=== PATIENT | female | born 2000 | race Asian ===

== ENCOUNTER 2021-07-12 17:03 | Inpatient (IN) | payer BC, SELFPAY ==
--- NOTE | ~2021-07-12 | CT_ITS ---
EXAMINATION: CT ANGIOGRAM OF THE CHEST WITH AND WITHOUT CONTRAST (CT PULMONARY ANGIOGRAM FOR PE) CLINICAL INFORMATION: Reason for Exam pleuritic chest pain COMPARISON: None TECHNIQUE: Prior to contrast administration, noncontrast localization images were obtained. Subsequently, multidetector volumetric imaging was performed from the thoracic inlet to below the diaphragms following the administration of 65 mL Omnipaque 350 intravenous contrast. No contrast reaction reported Sagittal, coronal, and MIP oblique sagittal reformatted images were obtained on the CT workstation, uploaded to PACS, and reviewed. This CT examination was performed using dose optimization techniques as appropriate, variously including the following: *Automated exposure control *Adjustment of mA and/or kV according to patient size (this includes techniques or standardized protocols for targeted exams where dose is matched to indication/reason for exam; i.e. extremities or head) *Use of iterative reconstruction technique Total exam dose-length product 168 mGy-cm FINDINGS: QUALITY OF STUDY/CONTRAST BOLUS: Satisfactory. PULMONARY ARTERIES: No central or segmental pulmonary emboli. THORACIC AORTA: No aneurysm or dissection. LUNG: Detailed parenchymal evaluation in some regions is limited due to respiratory motion artifact. No regions of consolidation bilaterally. Mild emphysema noted. PLEURA: No pleural effusion or pneumothorax. MEDIASTINUM: Visualized thyroid gland appears grossly unremarkable. There are subcentimeter mediastinal lymph nodes within the range of normal variation. Cardiac size is within normal limits; no pericardial effusion. No evidence of septal bowing or right heart strain. CHEST WALL/AXILLA: No axillary or internal mammary lymphadenopathy. OSSEOUS STRUCTURES: No acute or suspicious osseous abnormality. UPPER ABDOMEN: Unremarkable. No reflux of contrast into the hepatic veins to suggest elevated right heart pressures. CT/CT angio chest PE protocol IMPRESSION: No pulmonary embolus identified. VTE: negative
--- NOTE | 2021-07-12 18:10 | ECG_ITS ---
Test Reason : chest pain Blood Pressure : / mmHG Vent. Rate : 075 BPM Atrial Rate : 075 BPM P-R Int : 162 ms QRS Dur : 070 ms QT Int : 350 ms P-R-T Axes : 065 084 046 degrees QTc Int : 390 ms Normal sinus rhythm T wave abnormality, consider anterior ischemia Abnormal ECG No previous ECGs available Referred By: Generic ED Physician Electronically Signed By:ANAI HEREDIA MD
[2021-07-12 19:22] VITALS: BP 136/64; PULSE 83; RESP 14; TEMP 36.9; O2SAT 93; BMI 19.2
--- NOTE | 2021-07-12 23:24 | ED_ITS ---
HPI - Chest Pain General Chief Complaint: Chest Pain <SONI Vivar Last Filed: 07/13/21 04:58> Stated Complaint: chest pains <SONI Vivar Last Filed: 07/13/21 04:58> Time Seen by Provider: 07/12/21 23:09 <SONI Vivar Last Filed: 07/13/21 04:58> Source: patient <SONI Vivar Last Filed: 07/13/21 04:58> Mode of arrival: ambulatory <SONI Vivar Last Filed: 07/13/21 04:58> Limitations: no limitations <SONI Vivar Last Filed: 07/13/21 04:58> History of Present Illness HPI narrative: This is a 20-year-old female with no significant medical history presenting to the emergency department with complaints of chest pain X2 days. Patient tells me that the chest pain is pleuritic in nature worse with deep inspiration better with expiration, she reports associated shortness of breath with this chest pain. She tells me that this has never happened before.She tells me she has no known personal cardiac history. No significant family cardiac history. Personal history of congenital heart deffects. Patient tells me she is currently on control. Denies sedentary lifestyle. No recent sick contacts. She denies nausea, vomiting, headache, dizziness, vision changes, abdominal pain, changes in urination in bowel habits. Denies drugs and smoking. <SONI Vivar Last Filed: 07/13/21 04:58> Related Data Home Medications: Home Medications Medication Instructions Recorded Confirmed norethindrone 1 mg-ethinyl 1 tab PO DAILY 07/13/21 07/13/21 estradiol 35 mcg tablet (Alyacen) Previous Rx's Medication Instructions Recorded acetaminophen 325 mg tablet 650 mg PO Q6H PRN #60 tab 07/13/21 aspirin 81 mg chewable tablet 81 mg PO DAILY #30 tab 07/13/21 heparin (porcine) 25,000 unit/250 25,000 unit (250 mL) CONTINUOUS IV 07/13/21 mL in 0.45 % sodium chloride IV INFUSION DAILY #6000 ml soln heparin (porcine) 5,000 unit/mL 1,900 unit (0.38 mL) IVPUSH 07/13/21 injection solution PROTOCOL BOLUS PRN #30 ml heparin (porcine) 5,000 unit/mL 3,800 unit (0.76 mL) IVPUSH 07/13/21 injection solution PROTOCOL BOLUS PRN #30 ml <SONI Vivar Last Filed: 07/13/21 04:58> Allergies/Adverse Reactions: Allergies Allergy/AdvReac Type Severity Reaction Status Date / Time No Known Allergies Allergy Verified 07/13/21 05:27 <SONI Vivar Last Filed: 07/13/21 04:58> Review of Systems Review of Systems: Constitutional : No Weight loss, No Fever, No Chills, No Fatigue, No Malaise ENT/Mouth : No sore throat, No Rhinorrhea Eyes: No Eye Pain, No Swelling, No Redness Cardiovascular : + Chest Pain, + SOB, No Dyspnea on Exertion, No Orthopnea, No Edema, No Palpitations Respiratory : No Cough, No Sputum, No Wheezing Gastrointestinal : No Nausea, No Vomiting, No Diarrhea, No Constipation, No abdominal Pain, No Hematochezia, No Melena Genitourinary : No Dysuria, No Urinary Frequency, No Hematuria, Musculoskeletal : No joint pain, No Myalgias, No Joint Swelling Skin : No Skin Lesions, No rash Neuro : No Weakness, No Numbness, No Dizziness, No Headache Psych : No Anxiety/Panic, No Depression All other systems reviewed and are negative <SONI Vivar Last Filed: 07/13/21 04:58> Yes all other systems are reviewed and are negative <SONI Vivar Last Filed: 07/13/21 04:58> PMF Past Medical History Attestation statement: The following information was validated with the patient. <SONI Vivar Last Filed: 07/13/21 04:58> Source: old records reviewed and nursing notes reviewed <SONI Vivar Last Filed: 07/13/21 04:58> Social History Social History: Social History Alcohol intake: current Alcohol intake frequency: a few times a month Alcohol type: hard liquor Patient Tobacco Use Status: Never used Tobacco service: No Current occupational status: student <SONI Vivar - Last Filed: 07/13/21 04:58> Physical Exam Vital Signs: Vital Signs: Last Vital Signs Temp 97.6 F 07/13/21 16:13 Pulse 101 H 07/13/21 19:29 Resp 24 H 07/13/21 19:29 BP 106/68 07/13/21 19:29 Pulse Ox 98 07/13/21 19:29 BMI result Body Mass Index 19.2 Vital signs stable <SONI Vivar - Last Filed: 07/13/21 04:58> Appearance: Alert.? Oriented X3.? No acute distress.? Head: Normocephalic, atraumatic, no step-offs or deformities Eyes: Pupils equal, round and reactive to light.? ENT: Pharynx normal.? Neck: Normal inspection.? Neck supple.? CVS: Normal heart rate and rhythm.? Pulses normal.? was not able to appreciate any murmurs. Respiratory: No respiratory distress.? Breath sounds normal.? Abdomen: Soft and nontender.? Skin: Skin warm and dry.? Normal skin color.? Normal skin turgor.? Extremities: No lower extremity edema.? No calf ttp , negative Mariza bilaterally. 5/5 strength to bilateral upper and lower extremities Neuro: Oriented X 3.? No motor deficit.? No sensory deficit. CN 2-12 intact <SONI Vivar - Last Filed: 07/13/21 04:58> Course Reevaluation(s) Reevaluation #1: CBC appears to be within normal limits. chemistry with no acute electrolyte abnormalities. BNP 85. Troponin 42039.3. Will do a CTA to rule out PE. Will also reach out to Cardiology. Will give asa 325 at this time. Discussed this case w/ <SONI Vivar - Last Filed: 07/13/21 04:58> Time: 00:51 <SONI Vivar - Last Filed: 07/13/21 04:58> Reevaluation #2: Repeat troponin 05497.1. CTA negative for PE. Patient continues to complain of pleuritic chest pain. [place] texted from cardiology for guidance. This is likely myocarditis. <SONI Vivar - Last Filed: 07/13/21 04:58> Time: 02:40 <SONI Vivar - Last Filed: 07/13/21 04:58> Reevaluation #3: Hospitalist recommends transfer to [facility] due to no inhouse overnight coverage. <SONI Vivar - Last Filed: 07/13/21 04:58> Time: 02:48 <SONI Vivar - Last Filed: 07/13/21 04:58> Additional Reevaluation(s): 0251 [facility] is close to transfers at this time, only open for STEMI will try [place] [facility]. [address] [facility] ED ED-ED 0259 New t wave inversions to V4, and right axis deviation. 0348 Cardiology feels comfortable with this patient staying in-house receiving heparin and colchicine which I will order for patient. Hospitalist still does not feel comfortable keeping this patient. He will reach out to cardiology. HH waiting for us to determine if patient will be transfered or not. 0445 called [facility] to cancel transfer. At this time patient will be admitted to the hospitalist team. Put in an order for heparin. accepting <SONI Vivar - Last Filed: 07/13/21 04:58> MDM - Chest Pain MDM Narrative Medical decision making narrative: 6135 This is a 20-year-old female past medical history congenital heart disease presenting to the emergency department with complaints of pleuritic chest pain and associated shortness of breath x2 days progressively worsening. Patient is on control pills. Denies long travel. Denies previous episodes like this. Denies recent illness. Denies fevers and chills. Denies back pain. On combination OCP Alyacen Upon physical examination patient is noted to have a rapid regular rhythm likely sinus tachycardia. Was not able to appreciate murmurs upon my exam. Lungs clear. Abdomen soft nontender nondistended. Negative Mariza bilaterally. Neuro exam is nonfocal. Patient alert and oriented x4 with stable vital signs Plan at this time is labs, imaging, urine, EKG, cardiac monitoring, D-dimer, troponin. Will rule out ACS, PE. Other differentials include pericarditis, myocarditis. Unlikely that this is aortic dissection history and physical examination not consistent with it. <SONI Vivar - Last Filed: 07/13/21 04:58> Medical Records Data Attestation: I reviewed the patient's medical records. <SONI Vivar - Last Filed: 07/13/21 04:58> Lab Data Attestation: I reviewed the patient's lab results. <SONI Vivar - Last Filed: 07/13/21 04:58> Result diagrams: : 07/12/21 23:44 07/12/21 23:44 <SONI Vivar - Last Filed: 07/13/21 04:58> Labs: Lab Results 07/12/21 07/12/21 07/12/21 Range/Units 23:44 23:44 23:44 WBC 9.5 (4.8-10.8) X10*3/uL RBC 4.14 L (4.20-5.50) X10*6/uL Hgb 12.0 (12.0-16.0) g/dl Hct 36.7 L (37.0-47.0) % MCV 88.6 (80.0-98.0) fL MCH 29.0 (27.0-33.0) pg MCHC 32.7 (31.0-35.0) g/dl RDW 13.2 (11.0-16.0) % Plt Count 322 (160-400) X10*3/uL MPV 9.1 L (9.4-12.3) fL Immature Gran % (Auto) 0.2 (0.0-0.4) % Neut % (Auto) 61.7 (45-73) % Lymph % (Auto) 28.1 (20-40) % Sargent % (Auto) 6.9 (2-11) % Eos % (Auto) 2.8 (0-4) % Baso % (Auto) 0.3 (0-2) % Lymph # (Auto) 2.7 (1.2-4.9) X10*3/uL Sargent # (Auto) 0.7 (0.1-1.2) X10*3/uL Eos # (Auto) 0.3 (0.0-0.4) X10*3/uL Baso # (Auto) 0.0 (0.0-0.2) X10*3/uL Abs Immat Gran (auto) 0.02 (0.00-0.03) X10*3/uL Absolute Neuts (auto) 5.9 (2.0-8.3) x10*3/uL Absolute Nucleated RBC 0.000 (0.0-0.012) X10*3/uL Nucleated RBC % (auto) 0.0 (0.0-0.2) /100WBC ESR (0-20) MM/HR PT (9.9-13.0) SEC INR (0.9-1.1) APTT (24.1-38.0) SEC D-Dimer High Sensitivty NG/ML Sodium 137 (135-145) mmol/L Potassium 4.5 (3.3-5.1) mmol/L Chloride 106 (96-108) mmol/L Carbon Dioxide 24 (22-29) mmol/L Anion Gap 12 (12-20) BUN 9 (9-16) mg/dL Creatinine 0.78 (0.5-1.4) mg/dL Estim Creat Clear Calc 85.8 Estimated GFR > 60 Random Glucose 99 (60-115) mg/dL Calcium 9.4 (8.4-10.2) mg/dL Magnesium 2.2 (1.6-2.6) mg/dL Total Bilirubin 0.3 (0.0-1.0) mg/dL AST 67 H (5-31) U/L ALT 13 (0-31) U/L Alkaline Phosphatase 51 (39-117) U/L Troponin I High Sens (<3.5-17.0) ng/L C-Reactive Protein 8.31 H (< or = 0.50) mg/dL B-Natriuretic Peptide (<100) pg/mL Total Protein 8.0 (6.5-8.0) g/dL Albumin 4.0 (3.5-5.0) g/dL Lipase 28 (8-78) U/L Urine Color Urine Appearance Urine pH (5.0-8.0) Ur Specific [place] (1.005-1.025) Urine Protein (NEG-TRACE) MG/DL Urine Glucose (UA) (NEG) MG/DL Urine Ketones (NEG) MG/DL Urine Blood (NEG) Urine Nitrite (NEG) Ur Leukocyte Esterase (NEG) Urine Test (NEGATIVE) Urine Opiates Screen (Not Detect) Urine Fentanyl Screen (Not Detect) Ur Barbiturates Screen (Not Detect) Ur Phencyclidine Scrn (Not Detect) Ur Amphetamines Screen (Not Detect) U Benzodiazepines Scrn (Not Detect) Urine Cocaine Screen (Not Detect) U Marijuana (THC) Screen (Not Detect) COVID-19 (PAPA) Negative (Negative) COVID-19 Clin Com See Note 07/12/21 07/12/21 07/13/21 Range/Units 23:44 23:44 00:20 WBC (4.8-10.8) X10*3/uL RBC (4.20-5.50) X10*6/uL Hgb (12.0-16.0) g/dl Hct (37.0-47.0) % MCV (80.0-98.0) fL MCH (27.0-33.0) pg MCHC (31.0-35.0) g/dl RDW (11.0-16.0) % Plt Count (160-400) X10*3/uL MPV (9.4-12.3) fL Immature Gran % (Auto) (0.0-0.4) % Neut % (Auto) (45-73) % Lymph % (Auto) (20-40) % Sargent % (Auto) (2-11) % Eos % (Auto) (0-4) % Baso % (Auto) (0-2) % Lymph # (Auto) (1.2-4.9) X10*3/uL Sargent # (Auto) (0.1-1.2) X10*3/uL Eos # (Auto) (0.0-0.4) X10*3/uL Baso # (Auto) (0.0-0.2) X10*3/uL Abs Immat Gran (auto) (0.00-0.03) X10*3/uL Absolute Neuts (auto) (2.0-8.3) x10*3/uL Absolute Nucleated RBC (0.0-0.012) X10*3/uL Nucleated RBC % (auto) (0.0-0.2) /100WBC ESR 44 H (0-20) MM/HR PT (9.9-13.0) SEC INR (0.9-1.1) APTT (24.1-38.0) SEC D-Dimer High Sensitivty NG/ML Sodium (135-145) mmol/L Potassium (3.3-5.1) mmol/L Chloride (96-108) mmol/L Carbon Dioxide (22-29) mmol/L Anion Gap (12-20) BUN (9-16) mg/dL Creatinine (0.5-1.4) mg/dL Estim Creat Clear Calc Estimated GFR Random Glucose (60-115) mg/dL Calcium (8.4-10.2) mg/dL Magnesium (1.6-2.6) mg/dL Total Bilirubin (0.0-1.0) mg/dL AST (5-31) U/L ALT (0-31) U/L Alkaline Phosphatase (39-117) U/L Troponin I High Sens 03550.3 H* (<3.5-17.0) ng/L C-Reactive Protein (< or = 0.50) mg/dL B-Natriuretic Peptide 85 (<100) pg/mL Total Protein (6.5-8.0) g/dL Albumin (3.5-5.0) g/dL Lipase (8-78) U/L Urine Color DK YELLOW Urine Appearance CLEAR Urine pH 6.5 (5.0-8.0) Ur Specific [place] >= 1.030 H (1.005-1.025) Urine Protein TRACE (NEG-TRACE) MG/DL Urine Glucose (UA) NEG (NEG) MG/DL Urine Ketones NEG (NEG) MG/DL Urine Blood NEG (NEG) Urine Nitrite NEG (NEG) Ur Leukocyte Esterase NEG (NEG) Urine Test (NEGATIVE) Urine Opiates Screen (Not Detect) Urine Fentanyl Screen (Not Detect) Ur Barbiturates Screen (Not Detect) Ur Phencyclidine Scrn (Not Detect) Ur Amphetamines Screen (Not Detect) U Benzodiazepines Scrn (Not Detect) Urine Cocaine Screen (Not Detect) U Marijuana (THC) Screen (Not Detect) COVID-19 (PAPA) (Negative) COVID-19 Clin Com 07/13/21 07/13/21 07/13/21 Range/Units 00:20 00:20 00:47 WBC (4.8-10.8) X10*3/uL RBC (4.20-5.50) X10*6/uL Hgb (12.0-16.0) g/dl Hct (37.0-47.0) % MCV (80.0-98.0) fL MCH (27.0-33.0) pg MCHC (31.0-35.0) g/dl RDW (11.0-16.0) % Plt Count (160-400) X10*3/uL MPV (9.4-12.3) fL Immature Gran % (Auto) (0.0-0.4) % Neut % (Auto) (45-73) % Lymph % (Auto) (20-40) % Sargent % (Auto) (2-11) % Eos % (Auto) (0-4) % Baso % (Auto) (0-2) % Lymph # (Auto) (1.2-4.9) X10*3/uL Sargent # (Auto) (0.1-1.2) X10*3/uL Eos # (Auto) (0.0-0.4) X10*3/uL Baso # (Auto) (0.0-0.2) X10*3/uL Abs Immat Gran (auto) (0.00-0.03) X10*3/uL Absolute Neuts (auto) (2.0-8.3) x10*3/uL Absolute Nucleated RBC (0.0-0.012) X10*3/uL Nucleated RBC % (auto) (0.0-0.2) /100WBC ESR (0-20) MM/HR PT 12.8 (9.9-13.0) SEC INR 1.1 (0.9-1.1) APTT 31.2 (24.1-38.0) SEC D-Dimer High Sensitivty 154 NG/ML Sodium (135-145) mmol/L Potassium (3.3-5.1) mmol/L Chloride (96-108) mmol/L Carbon Dioxide (22-29) mmol/L Anion Gap (12-20) BUN (9-16) mg/dL Creatinine (0.5-1.4) mg/dL Estim Creat Clear Calc Estimated GFR Random Glucose (60-115) mg/dL Calcium (8.4-10.2) mg/dL Magnesium (1.6-2.6) mg/dL Total Bilirubin (0.0-1.0) mg/dL AST (5-31) U/L ALT (0-31) U/L Alkaline Phosphatase (39-117) U/L Troponin I High Sens (<3.5-17.0) ng/L C-Reactive Protein (< or = 0.50) mg/dL B-Natriuretic Peptide (<100) pg/mL Total Protein (6.5-8.0) g/dL Albumin (3.5-5.0) g/dL Lipase (8-78) U/L Urine Color Urine Appearance Urine pH (5.0-8.0) Ur Specific [place] (1.005-1.025) Urine Protein (NEG-TRACE) MG/DL Urine Glucose (UA) (NEG) MG/DL Urine Ketones (NEG) MG/DL Urine Blood (NEG) Urine Nitrite (NEG) Ur Leukocyte Esterase (NEG) Urine Test NEGATIVE (NEGATIVE) Urine Opiates Screen POSITIVE H (Not Detect) Urine Fentanyl Screen Not Detected (Not Detect) Ur Barbiturates Screen Not Detected (Not Detect) Ur Phencyclidine Scrn Not Detected (Not Detect) Ur Amphetamines Screen Not Detected (Not Detect) U Benzodiazepines Scrn Not Detected (Not Detect) Urine Cocaine Screen Not Detected (Not Detect) U Marijuana (THC) Screen Not Detected (Not Detect) COVID-19 (PAPA) (Negative) COVID-19 Clin Com 07/13/21 07/13/21 Range/Units 00:47 03:40 WBC (4.8-10.8) X10*3/uL RBC (4.20-5.50) X10*6/uL Hgb (12.0-16.0) g/dl Hct (37.0-47.0) % MCV (80.0-98.0) fL MCH (27.0-33.0) pg MCHC (31.0-35.0) g/dl RDW (11.0-16.0) % Plt Count (160-400) X10*3/uL MPV (9.4-12.3) fL Immature Gran % (Auto) (0.0-0.4) % Neut % (Auto) (45-73) % Lymph % (Auto) (20-40) % Sargent % (Auto) (2-11) % Eos % (Auto) (0-4) % Baso % (Auto) (0-2) % Lymph # (Auto) (1.2-4.9) X10*3/uL Sargent # (Auto) (0.1-1.2) X10*3/uL Eos # (Auto) (0.0-0.4) X10*3/uL Baso # (Auto) (0.0-0.2) X10*3/uL Abs Immat Gran (auto) (0.00-0.03) X10*3/uL Absolute Neuts (auto) (2.0-8.3) x10*3/uL Absolute Nucleated RBC (0.0-0.012) X10*3/uL Nucleated RBC % (auto) (0.0-0.2) /100WBC ESR (0-20) MM/HR PT (9.9-13.0) SEC INR (0.9-1.1) APTT (24.1-38.0) SEC D-Dimer High Sensitivty NG/ML Sodium (135-145) mmol/L Potassium (3.3-5.1) mmol/L Chloride (96-108) mmol/L Carbon Dioxide (22-29) mmol/L Anion Gap (12-20) BUN (9-16) mg/dL Creatinine (0.5-1.4) mg/dL Estim Creat Clear Calc Estimated GFR Random Glucose (60-115) mg/dL Calcium (8.4-10.2) mg/dL Magnesium (1.6-2.6) mg/dL Total Bilirubin (0.0-1.0) mg/dL AST (5-31) U/L ALT (0-31) U/L Alkaline Phosphatase (39-117) U/L Troponin I High Sens 72881.1 H* 85180.7 H* (<3.5-17.0) ng/L C-Reactive Protein (< or = 0.50) mg/dL B-Natriuretic Peptide (<100) pg/mL Total Protein (6.5-8.0) g/dL Albumin (3.5-5.0) g/dL Lipase (8-78) U/L Urine Color Urine Appearance Urine pH (5.0-8.0) Ur Specific [place] (1.005-1.025) Urine Protein (NEG-TRACE) MG/DL Urine Glucose (UA) (NEG) MG/DL Urine Ketones (NEG) MG/DL Urine Blood (NEG) Urine Nitrite (NEG) Ur Leukocyte Esterase (NEG) Urine Test (NEGATIVE) Urine Opiates Screen (Not Detect) Urine Fentanyl Screen (Not Detect) Ur Barbiturates Screen (Not Detect) Ur Phencyclidine Scrn (Not Detect) Ur Amphetamines Screen (Not Detect) U Benzodiazepines Scrn (Not Detect) Urine Cocaine Screen (Not Detect) U Marijuana (THC) Screen (Not Detect) COVID-19 (PAPA) (Negative) COVID-19 Clin Com <SONI Vivar - Last Filed: 07/13/21 04:58> Critical Care Time Critical Care Time Critical Care Time: Yes <SONI Vivar - Last Filed: 07/13/21 04:58> Total Critical Care Time: 120 <SONI Vivar - Last Filed: 07/13/21 04:58> Attestation: I attest to this time spent taking care of the patient, obtaining history, physical, reviewing labs, imaging, speaking to my attending, speaking to specialist. <SONI Vivar - Last Filed: 07/13/21 04:58> Discharge Plan Discharge Clinical Impression: Chest pain, Shortness of breath, Myocarditis <SONI Vivar - Last Filed: 07/13/21 04:58> Patient Disposition: [facility] <SONI Vivar - Last Filed: 07/13/21 04:58> Transfer Details: TO [facility] <SONI Vivar - Last Filed: 07/13/21 04:58> Interventions: Acute Care Transfer Worksheet (ED) Last Done: 07/13/21 19:42 <SONI Vivar - Last Filed: 07/13/21 04:58> Discharge Date/Time: 07/13/21 19:42 <SONI Vivar - Last Filed: 07/13/21 04:58>
[2021-07-12 23:44] VITALS: BP 105/67; PULSE 68; RESP 16; O2SAT 100
[2021-07-12 23:53] LABS: MANUAL DIFF FLAG NO
[2021-07-12 23:54] LABS: Basophils Percent Auto 0.3 % (0-2); Eosinophils Absolute Auto 0.3 X10*3/uL (0.0-0.4); Eosinophils Percent Auto 2.8 % (0-4); Hematocrit 36.7 % (37.0-47.0); Imm Gran Abs Auto 0.02 X10*3/uL (0.00-0.03); Imm Gran Pct Auto 0.2 % (0.0-0.4); Lymphocytes Absolute Auto 2.7 X10*3/uL (1.2-4.9); Lymphocytes Percent Auto 28.1 % (20-40); Mean Corpuscular HGB Conc 32.7 g/dl (31.0-35.0); Mean Corpuscular Volume 88.6 fL (80.0-98.0); Mean Platelet Volume 9.1 fL (9.4-12.3); Monocytes Absolute Auto 0.7 X10*3/uL (0.1-1.2); Monocytes Percent Auto 6.9 % (2-11); Neutrophils Absolute Auto 5.9 x10*3/uL (2.0-8.3); Neutrophils Percent Auto 61.7 % (45-73); Platelet Count 322 X10*3/uL (160-400); Red Blood Count 4.14 X10*6/uL (4.20-5.50); Red Cell Distribution Width 13.2 % (11.0-16.0); White Blood Count 9.5 X10*3/uL (4.8-10.8)
[2021-07-13] VITALS (8 sets, daily range): BP systolic 90–109; BP diastolic 55–69; PULSE 61–101; RESP 17–24; TEMP 36.4–37.5; O2SAT 98–100
--- NOTE | 2021-07-13 | ECG_ITS ---
Test Reason : rhythm check Blood Pressure : / mmHG Vent. Rate : 073 BPM Atrial Rate : 073 BPM P-R Int : 170 ms QRS Dur : 074 ms QT Int : 416 ms P-R-T Axes : 062 086 264 degrees QTc Int : 458 ms Normal sinus rhythm T wave abnormality, consider inferior ischemia T wave abnormality, consider anterolateral ischemia Abnormal ECG When compared with ECG of 13-JUL-2021 03:00, T wave inversion now evident in Inferior leads Inverted T waves have replaced nonspecific T wave abnormality in Lateral leads Referred By: Earl Palmer Electronically Signed By:ANAI HEREDIA MD
[2021-07-13 00:08] LABS: Alanine Aminotransferase 13 U/L (0-31); Alkaline Phosphatase 51 U/L (39-117); Anion Gap 12 (12-20); Aspartate Amino Transferase 67 U/L (5-31); Bilirubin Total 0.3 mg/dL (0.0-1.0); Blood Urea Nitrogen 9 mg/dL (9-16); Calcium 9.4 mg/dL (8.4-10.2); Carbon Dioxide 24 mmol/L (22-29); Chloride 106 mmol/L (96-108); Creatinine Clr Calc Pharmacy 85.8; Estimated Glomerular Filt Rate > 60; Glucose Random 99 mg/dL (60-115); Lipase 28 U/L (8-78); Magnesium 2.2 mg/dL (1.6-2.6); Potassium 4.5 mmol/L (3.3-5.1); Sodium 137 mmol/L (135-145)
[2021-07-13 00:12] LABS: COVID-19 Test Negative (Negative)
[2021-07-13 00:15] LABS: B Type Natriuretic Peptide 85 pg/mL (<100)
[2021-07-13 00:32] LABS: Appearance Urine CLEAR; Color Urine DK YELLOW; Glucose Urine UA NEG (NEG); Leukocyte Esterase Urine NEG (NEG); Nitrite Urine NEG (NEG); PH 6.5 (5.0-8.0); Specific Gravity - Urine >= 1.030 (1.005-1.025); Urine Blood NEG (NEG); Urine Ketones NEG (NEG); Urine Protein TRACE MG/DL (NEG-TRACE)
[2021-07-13 00:33] LABS: UPreg QC Valid YES; Urine Pregnancy NEGATIVE (NEGATIVE)
[2021-07-13] MEDS: Aspirin 325 MG TABLET PO (00:51)
[2021-07-13 01:01] LABS: D Dimer High Sensitivity 154 NG/ML
[2021-07-13] MEDS: iohexoL 350 MG/ML 100 ML INFUS..BTL 65 ML IV (01:28)
--- NOTE | 2021-07-13 02:54 | PC.NURSE ---
call out to [facility] transfer line @[phone] regarding transfer [facility] declined patient transfer due to not accepting non acute transfers at the moment.
--- NOTE | 2021-07-13 02:56 | PC.NURSE ---
Addendum entered by Rhianna Lemus 07/13/21 02:58: call out to [facility] patient placement line @[phone]. Bin Neil patient demographics Faxed Face sheet @[phone] Original Note: call out to [facility] patient placement line :?[phone]:[phone]
[2021-07-13 02:59] LABS: C Reactive Protein 8.31 mg/dL (< or = 0.50)
--- NOTE | 2021-07-13 03:01 | ECG_ITS ---
Test Reason : CHEST PAIN Blood Pressure : / mmHG Vent. Rate : 074 BPM Atrial Rate : 074 BPM P-R Int : 160 ms QRS Dur : 070 ms QT Int : 402 ms P-R-T Axes : 046 091 072 degrees QTc Int : 446 ms Normal sinus rhythm Rightward axis T wave abnormality, consider anterior ischemia Abnormal ECG When compared with ECG of 12-JUL-2021 18:10, Nonspecific T wave abnormality now evident in Lateral leads QT has lengthened Referred By: Michelle Rosenbaum Electronically Signed By:ANAI HEREDIA MD
[2021-07-13 03:23] LABS: Erythrocyte Sedimentation Rate 44 MM/HR (0-20)
[2021-07-13 05:09] LABS: INTERNATIONAL NORM RATIO 1.1 (0.9-1.1); Prothrombin Time 12.8 SEC (9.9-13.0)
[2021-07-13 05:11] LABS: Partial Thromboplastin Time 31.2 SEC (24.1-38.0)
[2021-07-13] MEDS: Heparin Sodium,Porcine 5,000 UNIT/ML VIAL 2900 UNIT IVPUSH (05:28)
[2021-07-13] MEDS: Heparin Sodium,Porcine/1/2NS 25,000 UNIT/250 ML IV.SOLN 5.72 UNIT IVCONT (05:33)
--- NOTE | 2021-07-13 05:33 | P.HPHOSP_ITS ---
History of Present Illness Date of Service: 07/13/21 Chief Complaint: chest pain 20-year-old female with a past medical history of congenital heart disease status post surgery presented to the hospital with a chief complaint of chest pain. Patient reported that since yesterday she has been having chest pain, int ermittent in nature, sharp, located in the center of the chest, associated with sweating; had mild dizziness while she was waiting in the ER; chest pain was initially coming and going type; mentioned that she had similar chest pain about 3 weeks ago which resolved; Denies having any fever chills cough. Denies any recent viral infection. Denies any nausea vomiting or diarrhea in the recent times. Denies any sick contacts or recent travel. As the symptoms were not improving decided to come to the ER for further evaluation. Patient reported that chest pain was 5 8/10 prior to coming to the ER; currently improved to 3/10. Chest pain is still present but reduced in intensity. Review of all other systems is negative except mentioned above ER course: Per ER team reported that patient noted to have T-wave inversions in lateral leads; troponins elevated to 12,000-followed by 13,000; discussed with Cardiology Dr. Maxwell, recommended to start the patient on heparin drip and admit [facility]. Urine test was negative Off note: I spoke to the patient and patient's family at bedside, explained in detail about the plan of care, cardiology recommendations, given options for transfer to a tertiary center as there is no cardiac catheterization available at [facility]. Patient reported that she prefers to stay at [facility] and would like to see the senior software qa engineer in the morning PMFSH Social History Advance Directives: No Meds Allergies Allergy/AdvReac Type Severity Reaction Status Date / Time No Known Allergies Allergy Verified 07/13/21 05:27 Active Medications: Current Medications Acetaminophen (Acetaminophen 325 Mg Tablet) 650 mg PO Q6H PRN PRN Reason: Pain, Mild (Pain Scale 1-3) Heparin Sodium (Porcine) (Heparin Sodium,Porcine 5,000 Unit/Ml Vial) 1,900 unit 40 unit/kg (1900 unit) IVPUSH PROTOCOL BOLUS PRN; Protocol PRN Reason: 40 unit/kg - Heparin Protocol Heparin Sodium (Porcine) (Heparin Sodium,Porcine 5,000 Unit/Ml Vial) 3,800 unit 80 unit/kg (3800 unit) IVPUSH PROTOCOL BOLUS PRN; Protocol PRN Reason: 80 unit/kg - Heparin Protocol Heparin Sodium/Sodium Chloride () 25,000 unit in 250 mls @ 0 mls/hr IVCONT .Q0M TERESA; Protocol Melatonin (Melatonin 3 Mg Tablet) 6 mg PO BEDTIME PRN PRN Reason: Insomnia Morphine Sulfate (Morphine Sulfate 4 Mg/Ml Cartridge) 1 mg IVPUSH Q4H PRN; Protocol PRN Reason: Pain, Severe (Pain Scale 7-10) Senna (Sennosides 8.6 Mg Tablet) 17.2 mg PO BEDTIME PRN PRN Reason: Constipation Sodium Chloride (0.9 % Sodium Chloride Flush 3 Ml Syringe) 3 ml IVFLUSH QSHIFT [place] Physical Exam Vital Signs and Narrative: Vital Signs: Last Vital Signs Temp 98.5 F 07/12/21 19:22 Pulse 62 07/13/21 04:34 Resp 18 07/13/21 04:34 BP 98/61 07/13/21 04:34 Pulse Ox 99 07/13/21 04:34 BMI result Body Mass Index 19.2 Gen: Appears be in no acute distress HEENT: NCAT, Moist mucosa. Pulmonary: Vesicular breath sounds, fair air entry; chest pain is not reproducible CVS: Normal S1-S2 Abdomen: BS+, Soft, Nontender Extremities: Warm well perfused Neuro: Alert and awake. Results Labs CBC and Chem 7: 07/12/21 23:44 07/12/21 23:44 Labs: Laboratory Results - last 24 hr 07/12/21 07/12/21 07/12/21 23:44 23:44 23:44 MCV 88.6 MCH 29.0 MCHC 32.7 RDW 13.2 Plt Count 322 MPV 9.1 L Immature Gran % (Auto) 0.2 Neut % (Auto) 61.7 Lymph % (Auto) 28.1 [place] % (Auto) 6.9 Eos % (Auto) 2.8 Baso % (Auto) 0.3 Lymph # (Auto) 2.7 [place] # (Auto) 0.7 Eos # (Auto) 0.3 Baso # (Auto) 0.0 Abs Immat Gran (auto) 0.02 Absolute Neuts (auto) 5.9 Absolute Nucleated RBC 0.000 Nucleated RBC % (auto) 0.0 ESR PT INR APTT D-Dimer High Sensitivty Anion Gap 12 Estim Creat Clear Calc 85.8 Estimated GFR > 60 Random Glucose 99 Calcium 9.4 Magnesium 2.2 Total Bilirubin 0.3 AST 67 H ALT 13 Alkaline Phosphatase 51 Troponin I High Sens C-Reactive Protein 8.31 H B-Natriuretic Peptide Total Protein 8.0 Albumin 4.0 Lipase 28 Urine Color Urine Appearance Urine pH Ur Specific [place] Urine Protein Urine Glucose (UA) Urine Ketones Urine Blood Urine Nitrite Ur Leukocyte Esterase Urine Test COVID-19 (PAPA) Negative COVID-19 Clin Com See Note 07/12/21 07/12/21 07/13/21 23:44 23:44 00:20 MCV MCH MCHC RDW Plt Count MPV Immature Gran % (Auto) Neut % (Auto) Lymph % (Auto) [place] % (Auto) Eos % (Auto) Baso % (Auto) Lymph # (Auto) [place] # (Auto) Eos # (Auto) Baso # (Auto) Abs Immat Gran (auto) Absolute Neuts (auto) Absolute Nucleated RBC Nucleated RBC % (auto) ESR 44 H PT INR APTT D-Dimer High Sensitivty Anion Gap Estim Creat Clear Calc Estimated GFR Random Glucose Calcium Magnesium Total Bilirubin AST ALT Alkaline Phosphatase Troponin I High Sens 06140.3 H* C-Reactive Protein B-Natriuretic Peptide 85 Total Protein Albumin Lipase Urine Color DK YELLOW Urine Appearance CLEAR Urine pH 6.5 Ur Specific [place] >= 1.030 H Urine Protein TRACE Urine Glucose (UA) NEG Urine Ketones NEG Urine Blood NEG Urine Nitrite NEG Ur Leukocyte Esterase NEG Urine Test COVID-19 (PAPA) COVID-19 [employer] Com 07/13/21 07/13/21 07/13/21 00:20 00:47 00:47 MCV MCH MCHC RDW Plt Count MPV Immature Gran % (Auto) Neut % (Auto) Lymph % (Auto) [place] % (Auto) Eos % (Auto) Baso % (Auto) Lymph # (Auto) [place] # (Auto) Eos # (Auto) Baso # (Auto) Abs Immat Gran (auto) Absolute Neuts (auto) Absolute Nucleated RBC Nucleated RBC % (auto) ESR PT 12.8 INR 1.1 APTT 31.2 D-Dimer High Sensitivty 154 Anion Gap Estim Creat Clear Calc Estimated GFR Random Glucose Calcium Magnesium Total Bilirubin AST ALT Alkaline Phosphatase Troponin I High Sens 14303.1 H* C-Reactive Protein B-Natriuretic Peptide Total Protein Albumin Lipase Urine Color Urine Appearance Urine pH Ur Specific [place] Urine Protein Urine Glucose (UA) Urine Ketones Urine Blood Urine Nitrite Ur Leukocyte Esterase Urine Test NEGATIVE COVID-19 (PAPA) COVID-19 Clin Com 07/13/21 03:40 MCV MCH MCHC RDW Plt Count MPV Immature Gran % (Auto) Neut % (Auto) Lymph % (Auto) [place] % (Auto) Eos % (Auto) Baso % (Auto) Lymph # (Auto) [place] # (Auto) Eos # (Auto) Baso # (Auto) Abs Immat Gran (auto) Absolute Neuts (auto) Absolute Nucleated RBC Nucleated RBC % (auto) ESR PT INR APTT D-Dimer High Sensitivty Anion Gap Estim Creat Clear Calc Estimated GFR Random Glucose Calcium Magnesium Total Bilirubin AST ALT Alkaline Phosphatase Troponin I High Sens 46054.7 H* C-Reactive Protein B-Natriuretic Peptide Total Protein Albumin Lipase Urine Color Urine Appearance Urine pH Ur Specific [place] Urine Protein Urine Glucose (UA) Urine Ketones Urine Blood Urine Nitrite Ur Leukocyte Esterase Urine Test COVID-19 (PAPA) COVID-19 Clin Com Imaging Radiologist's Impressions: Impressions Chest CTA 07/13/21 01:25 IMPRESSION: No pulmonary embolus identified. VTE: negative Assessment and Plan (1) Chest pain: Status: Acute Plan 20-year-old female with a past medical history of congenital heart disease status post surgery presented to the hospital with a chief complaint of chest pain. Chest pain: Patient denies any viral prodrome Noted to have elevated ESR and CRP Troponins: [id number]-->[id number]-->[id number]. Cardiology Dr Maxwell was notified about the patient-> recs heparin drip. Given ASA 325mg. c/w ASA Concern for NSTEMI vs Myocarditis. echo telemetry Morphine prn Will obtain Lyme, parvovirus, Coxsackie, CHRISTY, influenza, RSV, Urine Drug screen. COVID 19 negative. DVT ppx: pt on heparin drip Code Status: Full code. Quality Stroke Does the patient have a stroke diagnosis?: No VTE Prior VTE?: No VTE Risk Level:: Medical - moderate - high VTE Device Contraindication: Treatment Not Indicated VTE Drug Contraindication: N/A - Med Ordered
[2021-07-13 06:48] LABS: Influenza A PCR NEGATIVE (Negative); Influenza B PCR NEGATIVE (Negative); Resp Syncy Virus RNA Qual PCR NEGATIVE (Negative); SARS COV2 PCR INHOUSE POSITIVE (Negative)
--- NOTE | 2021-07-13 07:34 | PC.NURSE ---
pt a&ox3, vss, denies chest pain/sob at this time. heparin running @ 12u/kg/hr per provider order. no new orders at this time. boyfriend at bedside.
[2021-07-13 07:36] LABS: Amphetamine Screen Urine Not Detected (Not Detect); Barbiturates, Urine Not Detected (Not Detect); Benzodiazepines Screen Urine Not Detected (Not Detect); Cannabinoid Screen Urine Not Detected (Not Detect); Cocaine Screen Urine Not Detected (Not Detect); Fentanyl, urine Not Detected (Not Detect); Opiate Screen Urine POSITIVE (Not Detect); Phencyclidine Screen Urine Not Detected (Not Detect)
--- NOTE | 2021-07-13 08:05 | PHA.MEDREC ---
Pharmacy Consult ? Medication Reconciliation Pharmacy has completed the medication reconciliation.
[2021-07-13] MEDS: Aspirin 81 MG TAB.CHEW PO (09:27)
--- NOTE | 2021-07-13 09:29 | PC.NURSE ---
pt a&ox3, vss, pt denies chest pain/sob. medicated per provider order. no new orders at this time.
--- NOTE | 2021-07-13 10:00 | CA_ITS ---
Transthoracic Echocardiogram Patient (Last, First, Middle): Meredith Aguiar, Gender: Female Date of : 2000 Age: 20 Procedure Date: 07/13/2021 Procedure Type: Transthoracic Echocardiogram Location: ER Height: 157.48 cm Weight: 47.63 kg BSA: 1.45 m2 Heart Rate: bpm BP: 94 / 60 mmHg Computer Operations Supervisor: Referring MD: Ricci Geiger MD Symptoms: elevate troponins Study Quality: Fair ECG Rhythm: Sinus Conclusions: - Essentially normal study. Findings Left Ventricle Normal left ventricular size, thickness, systolic function, and wall motion. The visually estimated ejection fraction is between 50-55%. Diastolic function is normal for age. Right Ventricle Normal right ventricular cavity size and systolic function. Atria Both atria are normal in size. Aortic Valve Normal aortic valve structure and function. There is no aortic valve stenosis. There is no aortic valve regurgitation. Mitral Valve Normal mitral valve structure and function. There is no mitral valve regurgitation. There is no mitral valve stenosis. Pulmonic Valve Normal pulmonic valve structure and function. Tricuspid Valve Normal tricuspid valve structure and function. There is no tricuspid valve regurgitation. Normal right atrial pressure. There is no evidence of pulmonary hypertension. Great Vessels All visible segments of the aorta are normal in size. The visualized portions of the pulmonary artery and branches are normal. Venous The inferior vena cava is normal in size and collapses greater than 50% with inspiration. Pericardium/Pleural There is no evidence of pericardial effusion. Prior Study Comparison No prior study available for comparison. Measurements 2D Linear Measurements IVSd: 0.72 0.6-0.9/0.6-1.0 cm LVIDd: 4.51 3.9-5.3/4.2-5.9 cm LVIDd Index: 3.11 2.4-3.2/2.2-3.1 cm/m2 LVIDs: 3.04 2.0-3.6 cm LVPWd: 0.77 0.7-1.1 cm Ao Root: 2.20 2.1-3.5 cm LA Diam: 2.90 2.7-3.8/3.0-4.0 cm LAIDs Index: 2.00 1.5-2.3 cm/m2 LV Mass: 128.90 67-162/88-224 g LV Mass Index: 88.90 43-95/49-115 g/m2 LVOT Diam: 2.00 3.0+(-)1.3 cm Mitral Valve MV Pk E: 0.81 MV PK A: 0.63 MV Decel Time: 129.00 E/A: 1.30 E'Lateral: 13.70 E'Medial: 11.50 E/E' Med: 7.00 E/E' Lat: 5.90 PHT: 38.00 MVA PHT: 5.79 Decel [place]: 6.25 Aortic Valve AoV Pk Stanton: 1.19 AoV Mn Stanton: 0.87 AoV VTI: 0.30 AoV Pk Grad: 6.00 Aov Mn Grad: 3.00 BARRY Cont.VTI: 1.90 LVOT LVOT Pk Stanton: 0.81 LVOT Mn Stanton: 0.52 LVOT VTI: 0.18 LVOT Pk Grad: 3.00 LVOT Mn Grad: 1.00 LVOT Diam: 2.00 LVOT Area: 3.14 Diastolic Function MV Pk E: 0.81 MV Pk A: 0.63 E/A: 1.30 E'Medial: 11.50 E/E' Med: 7.00 E' Laterial: 13.70 E/E' Lat: 5.90 Tricuspid Valve TR Pk Stanton: 2.00 TR Pk Grad: 16.00 RA Press: 3.00 RVSP: 19.00 Great Vessels Aorta Ao Root-2D: 2.20 2.0-3.7 cm Ao Asc: 2.20 2.1-3.4 cm Pulmonary Valve PV Pk Stantno: 0.94 Peak PV Grad: 4.00 Updated in Other Vendor System with Status of Final Gonzalez Maxwell MD electronically signed on 07/13/2021 3:40:37 PM with status of Final
[2021-07-13 10:45] LABS: HCG Quantitative < 2 mIU/mL
--- NOTE | 2021-07-13 11:14 | MHC.CM.PN ---
Met with patient in regards to discharge planning. Patient lives with 2 roommates on an off campus apartment, ambulates independently and had no services prior to coming to the hospital. No services anticipated to be needed because patient is not homebound. Patient has received 3 Pfizer vaccines. Test positi07/13/2021 11:09 (ET) Nimisha Hankins: ve for Covid on 07/13. PCP is Dr Kathy Boudreaux in [place]. Patient denies having HCP. Information provided. Patient not interested in completing one at this time. Patient's roommate will transport patient home when medically stable. Continue to monitor for d/c needs.
--- NOTE | 2021-07-13 11:41 | P.PNIM_ITS ---
Subjective Subjective Date of Service: 07/13/21 Interval History: Remains chest pain-free; sats 100% on room air Review of Systems Denies chest pain Denies shortness of breath Denies nausea vomiting diarrhea Denies fever chills Physical Exam Vital Signs: Vital Signs: Last Vital Signs Temp 98.5 F 07/12/21 19:22 Pulse 74 07/13/21 09:25 Resp 17 07/13/21 09:25 BP 94/69 07/13/21 09:25 Pulse Ox 100 07/13/21 09:25 BMI result Body Mass Index 19.2 Const: Other: Awake alert no acute distress Resp: Other: Clear to auscultation bilaterally no rales rhonchi wheezes Cardio: Other: No S4; positive S1-S2; no S3 murmurs rubs or gallops GI: Other: Soft nontender nondistended with normoactive bowel sounds Neuro: Other: Cranial nerves 2-12 grossly intact as tested. Motor is 5/5 all extremities. Sensation is intact. Cognition is appropriate Extrem: Other: No edema bilaterally Objective Data Active Medications Acetaminophen (Acetaminophen 325 Mg Tablet) 650 mg PO Q6H PRN PRN Reason: Pain, Mild (Pain Scale 1-3) Aspirin (Aspirin 81 Mg Tab.Chew) 81 mg PO DAILY [facility] Last Admin: 07/13/21 09:27 Dose: 81 mg Documented by: YASSINE Heparin Sodium (Porcine) (Heparin Sodium,Porcine 5,000 Unit/Ml Vial) 1,900 unit 40 unit/kg (1900 unit) IVPUSH PROTOCOL BOLUS PRN; Protocol PRN Reason: 40 unit/kg - Heparin Protocol Heparin Sodium (Porcine) (Heparin Sodium,Porcine 5,000 Unit/Ml Vial) 3,800 unit 80 unit/kg (3800 unit) IVPUSH PROTOCOL BOLUS PRN; Protocol PRN Reason: 80 unit/kg - Heparin Protocol Heparin Sodium/Sodium Chloride () 25,000 unit in 250 mls @ 0 mls/hr IVCONT .Q0M [facility]; Protocol Last Admin: 07/13/21 05:33 Dose: 12 units/kg/hr, 5.72 mls/hr Documented by: STACY Cosigned by: FRANCO Melatonin (Melatonin 3 Mg Tablet) 6 mg PO BEDTIME PRN PRN Reason: Insomnia Morphine Sulfate (Morphine Sulfate 4 Mg/Ml Cartridge) 1 mg IVPUSH Q4H PRN; Protocol PRN Reason: Pain, Severe (Pain Scale 7-10) Senna (Sennosides 8.6 Mg Tablet) 17.2 mg PO BEDTIME PRN PRN Reason: Constipation Sodium Chloride (0.9 % Sodium Chloride Flush 3 Ml Syringe) 3 ml IVFLUSH QSHIFT TER[place] Last Admin: 07/13/21 07:15 Dose: Not Given Documented by: YASSINE Non-Admin Reason: IV Running Labs CBC & Chem 7: 07/12/21 23:44 07/12/21 23:44 Labs: Laboratory Results - last 24 hr 07/12/21 07/12/21 07/12/21 23:44 23:44 23:44 MCV 88.6 MCH 29.0 MCHC 32.7 RDW 13.2 Plt Count 322 MPV 9.1 L Immature Gran % (Auto) 0.2 Neut % (Auto) 61.7 Lymph % (Auto) 28.1 [place] % (Auto) 6.9 Eos % (Auto) 2.8 Baso % (Auto) 0.3 Lymph # (Auto) 2.7 [place] # (Auto) 0.7 Eos # (Auto) 0.3 Baso # (Auto) 0.0 Abs Immat Gran (auto) 0.02 Absolute Neuts (auto) 5.9 Absolute Nucleated RBC 0.000 Nucleated RBC % (auto) 0.0 ESR PT INR APTT D-Dimer High Sensitivty Anion Gap 12 Estim Creat Clear Calc 85.8 Estimated GFR > 60 Random Glucose 99 Calcium 9.4 Magnesium 2.2 Total Bilirubin 0.3 AST 67 H ALT 13 Alkaline Phosphatase 51 Troponin I High Sens C-Reactive Protein 8.31 H B-Natriuretic Peptide Total Protein 8.0 Albumin 4.0 Lipase 28 Beta HCG, Quant Urine Color Urine Appearance Urine pH Ur Specific [place] Urine Protein Urine Glucose (UA) Urine Ketones Urine Blood Urine Nitrite Ur Leukocyte Esterase Urine Test Urine Opiates Screen Urine Fentanyl Screen Ur Barbiturates Screen Ur Phencyclidine Scrn Ur Amphetamines Screen U Benzodiazepines Scrn Urine Cocaine Screen U Marijuana (THC) Screen COVID-19 (PAPA) Negative COVID-19 Clin Com See Note Influenza Type A (PCR) Influenza Type B (PCR) RSV RNA Qual (PCR) SARS-CoV-2 RNA (RT-PCR) 07/12/21 07/12/21 07/13/21 23:44 23:44 00:20 MCV MCH MCHC RDW Plt Count MPV Immature Gran % (Auto) Neut % (Auto) Lymph % (Auto) [place] % (Auto) Eos % (Auto) Baso % (Auto) Lymph # (Auto) [place] # (Auto) Eos # (Auto) Baso # (Auto) Abs Immat Gran (auto) Absolute Neuts (auto) Absolute Nucleated RBC Nucleated RBC % (auto) ESR 44 H PT INR APTT D-Dimer High Sensitivty Anion Gap Estim Creat Clear Calc Estimated GFR Random Glucose Calcium Magnesium Total Bilirubin AST ALT Alkaline Phosphatase Troponin I High Sens 13448.3 H* C-Reactive Protein B-Natriuretic Peptide 85 Total Protein Albumin Lipase Beta HCG, Quant Urine Color DK YELLOW Urine Appearance CLEAR Urine pH 6.5 Ur Specific [place] >= 1.030 H Urine Protein TRACE Urine Glucose (UA) NEG Urine Ketones NEG Urine Blood NEG Urine Nitrite NEG Ur Leukocyte Esterase NEG Urine Test Urine Opiates Screen Urine Fentanyl Screen Ur Barbiturates Screen Ur Phencyclidine Scrn Ur Amphetamines Screen U Benzodiazepines Scrn Urine Cocaine Screen U Marijuana (THC) Screen COVID-19 (PAPA) COVID-19 Clin Com Influenza Type A (PCR) Influenza Type B (PCR) RSV RNA Qual (PCR) SARS-CoV-2 RNA (RT-PCR) 07/13/21 07/13/21 07/13/21 00:20 00:20 00:47 MCV MCH MCHC RDW Plt Count MPV Immature Gran % (Auto) Neut % (Auto) Lymph % (Auto) [place] % (Auto) Eos % (Auto) Baso % (Auto) Lymph # (Auto) [place] # (Auto) Eos # (Auto) Baso # (Auto) Abs Immat Gran (auto) Absolute Neuts (auto) Absolute Nucleated RBC Nucleated RBC % (auto) ESR PT 12.8 INR 1.1 APTT 31.2 D-Dimer High Sensitivty 154 Anion Gap Estim Creat Clear Calc Estimated GFR Random Glucose Calcium Magnesium Total Bilirubin AST ALT Alkaline Phosphatase Troponin I High Sens C-Reactive Protein B-Natriuretic Peptide Total Protein Albumin Lipase Beta HCG, Quant Urine Color Urine Appearance Urine pH Ur Specific [place] Urine Protein Urine Glucose (UA) Urine Ketones Urine Blood Urine Nitrite Ur Leukocyte Esterase Urine Test NEGATIVE Urine Opiates Screen POSITIVE H Urine Fentanyl Screen Not Detected Ur Barbiturates Screen Not Detected Ur Phencyclidine Scrn Not Detected Ur Amphetamines Screen Not Detected U Benzodiazepines Scrn Not Detected Urine Cocaine Screen Not Detected U Marijuana (THC) Screen Not Detected COVID-19 (PAPA) COVID-19 Clin Com Influenza Type A (PCR) Influenza Type B (PCR) RSV RNA Qual (PCR) SARS-CoV-2 RNA (RT-PCR) 07/13/21 07/13/21 07/13/21 00:47 03:40 06:01 MCV MCH MCHC RDW Plt Count MPV Immature Gran % (Auto) Neut % (Auto) Lymph % (Auto) [place] % (Auto) Eos % (Auto) Baso % (Auto) Lymph # (Auto) [place] # (Auto) Eos # (Auto) Baso # (Auto) Abs Immat Gran (auto) Absolute Neuts (auto) Absolute Nucleated RBC Nucleated RBC % (auto) ESR PT INR APTT D-Dimer High Sensitivty Anion Gap Estim Creat Clear Calc Estimated GFR Random Glucose Calcium Magnesium Total Bilirubin AST ALT Alkaline Phosphatase Troponin I High Sens 69926.1 H* 33528.7 H* C-Reactive Protein B-Natriuretic Peptide Total Protein Albumin Lipase Beta HCG, Quant Urine Color Urine Appearance Urine pH Ur Specific [place] Urine Protein Urine Glucose (UA) Urine Ketones Urine Blood Urine Nitrite Ur Leukocyte Esterase Urine Test Urine Opiates Screen Urine Fentanyl Screen Ur Barbiturates Screen Ur Phencyclidine Scrn Ur Amphetamines Screen U Benzodiazepines Scrn Urine Cocaine Screen U Marijuana (THC) Screen COVID-19 (PAPA) COVID-19 Clin Com Influenza Type A (PCR) NEGATIVE Influenza Type B (PCR) NEGATIVE RSV RNA Qual (PCR) NEGATIVE SARS-CoV-2 RNA (RT-PCR) POSITIVE A 07/13/21 07/13/21 07:26 07:26 MCV MCH MCHC RDW Plt Count MPV Immature Gran % (Auto) Neut % (Auto) Lymph % (Auto) [place] % (Auto) Eos % (Auto) Baso % (Auto) Lymph # (Auto) [place] # (Auto) Eos # (Auto) Baso # (Auto) Abs Immat Gran (auto) Absolute Neuts (auto) Absolute Nucleated RBC Nucleated RBC % (auto) ESR PT INR APTT D-Dimer High Sensitivty Anion Gap Estim Creat Clear Calc Estimated GFR Random Glucose Calcium Magnesium Total Bilirubin AST ALT Alkaline Phosphatase Troponin I High Sens 9660.9 H* C-Reactive Protein B-Natriuretic Peptide Total Protein Albumin Lipase Beta HCG, Quant < 2 Urine Color Urine Appearance Urine pH Ur Specific [place] Urine Protein Urine Glucose (UA) Urine Ketones Urine Blood Urine Nitrite Ur Leukocyte Esterase Urine Test Urine Opiates Screen Urine Fentanyl Screen Ur Barbiturates Screen Ur Phencyclidine Scrn Ur Amphetamines Screen U Benzodiazepines Scrn Urine Cocaine Screen U Marijuana (THC) Screen COVID-19 (PAPA) COVID-19 Clin Com Influenza Type A (PCR) Influenza Type B (PCR) RSV RNA Qual (PCR) SARS-CoV-2 RNA (RT-PCR) Assessment and Plan (1) Chest pain: Status: Acute Plan 20-year-old female presents with 3 days of retrosternal chest discomfort along with mild shortness of breath with exertion. Troponin peak at 13 700 along with elevated inflammatory markers. Cardiology consult over phone; heparin drip started they will see in a.m. 1.Myocarditis (Covid +) -?DC heparin drip as ordered -2D echo -cardiology consult 2. COVID positive -isolation Full Code Quality Stroke Does the patient have a stroke diagnosis?: No VTE Prior VTE?: No VTE Risk Level:: Medical - moderate - high VTE Device Contraindication: Treatment Not Indicated VTE Drug Contraindication: N/A - Med Ordered
[2021-07-13 12:50] LABS: PTT Heparin Drip 44.5 SEC (53-77.9)
[2021-07-13] MEDS: Heparin Sodium,Porcine 5,000 UNIT/ML VIAL 1900 UNIT IVPUSH (13:01)
--- NOTE | 2021-07-13 13:32 | PC.NURSE ---
RN-RN report given - pt transferring to ED overflow.
[2021-07-13] MEDS: 0.9 % Sodium Chloride Flush 3 ML SYRINGE IVFLUSH (15:07)
--- NOTE | 2021-07-13 15:12 | PC.NURSE ---
Pt remains on heparin gtt. No CP at this time. SR with inverted T-waives present on monitor
--- NOTE | 2021-07-13 15:54 | PM.CNCAR ---
History of Present Illness History of Present Illness Date of Service: 07/13/21 Requesting physician: Earl Palmer Consult reason: chest pain and troponin elevation Chief complaint: Chest Pain Narrative: Meredith is a 20-year-old female with no significant past medical history who presented to [facility] yesterday with report of chest discomfort. Her EKG showed sinus rhythm with T-wave inversions in V3 and V4. Blood pressure normal, oxygen saturation 100% on room air. A CTA of the chest showed no PE. Her troponin levels were elevated at 12,810 initially and manjeet to 13,706. She was started on a heparin drip for anticoagulation for treatment of possible NSTEMI. She did have elevated ESR heart and CRP. Her initial COVID test was negative then PCR test came back positive. This morning her troponin level is 9660. Echocardiogram done today shows normal EF, no regional WMA. Today she was seen at 1230. She describes having sharp burning pain in her upper chest which has been continual since Tuesday 07/11. She has not had pain like this previously. No associated symptoms. No recent illness. When her pain continued yesterday she came to the ER for evaluation. She tells me that if she takes a deep breath in for when she climbs stairs her pain worsens. She feels that laying down makes her pain feel better. It has not gone away fully since it initially started 2 days ago. She says it does worsen at times and then goes back to a more mild level. Currently it is 3/10. It has been is uncomfortable as 8/10. In her normal state health she has no concerning symptoms. She is a college student and normally tolerates activity without any symptoms or concerns. Review of Systems Review of Systems: As above Yes all other systems are reviewed and are negative [facility] Social History Social History Alcohol intake: current Alcohol intake frequency: a few times a month Alcohol type: hard liquor Patient Tobacco Use Status: Never used Tobacco Use of substances other than those prescribed or required for medical reasons: No Advance Directives: No service: No Current occupational status: student Meds Allergies Allergy/AdvReac Type Severity Reaction Status Date / Time No Known Allergies Allergy Verified 07/13/21 05:27 Active Medications: Current Medications Acetaminophen (Acetaminophen 325 Mg Tablet) 650 mg PO Q6H PRN PRN Reason: Pain, Mild (Pain Scale 1-3) Aspirin (Aspirin 81 Mg Tab.Chew) 81 mg PO DAILY [facility] Last Admin: 07/13/21 09:27 Dose: 81 mg Documented by: Heparin Sodium (Porcine) (Heparin Sodium,Porcine 5,000 Unit/Ml Vial) 1,900 unit 40 unit/kg (1900 unit) IVPUSH PROTOCOL BOLUS PRN; Protocol PRN Reason: 40 unit/kg - Heparin Protocol Last Admin: 07/13/21 13:01 Dose: 1,900 unit Documented by: Heparin Sodium (Porcine) (Heparin Sodium,Porcine 5,000 Unit/Ml Vial) 3,800 unit 80 unit/kg (3800 unit) IVPUSH PROTOCOL BOLUS PRN; Protocol PRN Reason: 80 unit/kg - Heparin Protocol Heparin Sodium/Sodium Chloride () 25,000 unit in 250 mls @ 0 mls/hr IVCONT .Q0M [facility]; Protocol Last Titration: 07/13/21 13:01 Dose: 14 units/kg/hr, 6.67 mls/hr Documented by: Melatonin (Melatonin 3 Mg Tablet) 6 mg PO BEDTIME PRN PRN Reason: Insomnia Morphine Sulfate (Morphine Sulfate 4 Mg/Ml Cartridge) 1 mg IVPUSH Q4H PRN; Protocol PRN Reason: Pain, Severe (Pain Scale 7-10) Senna (Sennosides 8.6 Mg Tablet) 17.2 mg PO BEDTIME PRN PRN Reason: Constipation Sodium Chloride (0.9 % Sodium Chloride Flush 3 Ml Syringe) [facility] Admin: 07/13/21 15:07 Dose: 3 ml Documented by: Home Medications Medication Instructions Recorded Confirmed Last Taken Type norethindrone 1 mg-ethinyl 1 tab PO DAILY 07/13/21 07/13/21 07/12/21 History estradiol 35 mcg tablet (Alyacen) Physical Exam Vital Signs: Vital Signs: Last Vital Signs Temp 99.5 F 07/13/21 13:05 Pulse 84 07/13/21 13:05 Resp 22 H 07/13/21 13:05 BP 104/64 07/13/21 13:05 Pulse Ox 100 07/13/21 13:05 BMI result Body Mass Index 19.2 Const: General: cooperative, healthy appearing, alert and awake Orientation/consciousness: patient oriented x3 Neck: Neck: Yes normal visual inspection and Yes no JVD Resp: Effort & Inspection: normal respiratory effort, able to speak in complete sentences and not labored Auscultation: clear to auscultation bilaterally, no rales, no rhonchi and no wheezes Cardio: Rate: regular rate Rhythm: regular rhythm Heart sounds: S1 normal heart sound present and S2 normal heart sound present Peripheral pulses: Peripheral pulses 2+ throughout GI: Inspection: Yes normal to inspection Neuro: General: patient oriented x3 Extrem: General: Yes normal to inspection and No edema Objective Labs and Meds Result diagrams: 07/12/21 23:44 07/12/21 23:44 Lab results: Laboratory Results - last 24 hr 07/12/21 07/12/21 07/12/21 23:44 23:44 23:44 WBC 9.5 RBC 4.14 L Hgb 12.0 Hct 36.7 L MCV 88.6 MCH 29.0 MCHC 32.7 RDW 13.2 Plt Count 322 MPV 9.1 L Immature Gran % (Auto) 0.2 Neut % (Auto) 61.7 Lymph % (Auto) 28.1 [place] % (Auto) 6.9 Eos % (Auto) 2.8 Baso % (Auto) 0.3 Lymph # (Auto) 2.7 [place] # (Auto) 0.7 Eos # (Auto) 0.3 Baso # (Auto) 0.0 Abs Immat Gran (auto) 0.02 Absolute Neuts (auto) 5.9 Absolute Nucleated RBC 0.000 Nucleated RBC % (auto) 0.0 ESR PT INR APTT aPTT Heparin Protocol D-Dimer High Sensitivty Sodium 137 Potassium 4.5 Chloride 106 Carbon Dioxide 24 Anion Gap 12 BUN 9 Creatinine 0.78 Estim Creat Clear Calc 85.8 Estimated GFR > 60 Random Glucose 99 Calcium 9.4 Magnesium 2.2 Total Bilirubin 0.3 AST 67 H ALT 13 Alkaline Phosphatase 51 Troponin I High Sens C-Reactive Protein 8.31 H B-Natriuretic Peptide Total Protein 8.0 Albumin 4.0 Lipase 28 Beta HCG, Quant Urine Color Urine Appearance Urine pH Ur Specific [place] Urine Protein Urine Glucose (UA) Urine Ketones Urine Blood Urine Nitrite Ur Leukocyte Esterase Urine Test Urine Opiates Screen Urine Fentanyl Screen Ur Barbiturates Screen Ur Phencyclidine Scrn Ur Amphetamines Screen U Benzodiazepines Scrn Urine Cocaine Screen U Marijuana (THC) Screen COVID-19 (PAPA) Negative COVID-19 Clin Com See Note Influenza Type A (PCR) Influenza Type B (PCR) RSV RNA Qual (PCR) SARS-CoV-2 RNA (RT-PCR) 07/12/21 07/12/21 07/13/21 23:44 23:44 00:20 WBC RBC Hgb Hct MCV MCH MCHC RDW Plt Count MPV Immature Gran % (Auto) Neut % (Auto) Lymph % (Auto) [place] % (Auto) Eos % (Auto) Baso % (Auto) Lymph # (Auto) [place] # (Auto) Eos # (Auto) Baso # (Auto) Abs Immat Gran (auto) Absolute Neuts (auto) Absolute Nucleated RBC Nucleated RBC % (auto) ESR 44 H PT INR APTT aPTT Heparin Protocol D-Dimer High Sensitivty Sodium Potassium Chloride Carbon Dioxide Anion Gap BUN Creatinine Estim Creat Clear Calc Estimated GFR Random Glucose Calcium Magnesium Total Bilirubin AST ALT Alkaline Phosphatase Troponin I High Sens 92147.3 H* C-Reactive Protein B-Natriuretic Peptide 85 Total Protein Albumin Lipase Beta HCG, Quant Urine Color DK YELLOW Urine Appearance CLEAR Urine pH 6.5 Ur Specific [place] >= 1.030 H Urine Protein TRACE Urine Glucose (UA) NEG Urine Ketones NEG Urine Blood NEG Urine Nitrite NEG Ur Leukocyte Esterase NEG Urine Test Urine Opiates Screen Urine Fentanyl Screen Ur Barbiturates Screen Ur Phencyclidine Scrn Ur Amphetamines Screen U Benzodiazepines Scrn Urine Cocaine Screen U Marijuana (THC) Screen COVID-19 (PAPA) COVID-19 Clin Com Influenza Type A (PCR) Influenza Type B (PCR) RSV RNA Qual (PCR) SARS-CoV-2 RNA (RT-PCR) 07/13/21 07/13/21 07/13/21 00:20 00:20 00:47 WBC RBC Hgb Hct MCV MCH MCHC RDW Plt Count MPV Immature Gran % (Auto) Neut % (Auto) Lymph % (Auto) [place] % (Auto) Eos % (Auto) Baso % (Auto) Lymph # (Auto) [place] # (Auto) Eos # (Auto) Baso # (Auto) Abs Immat Gran (auto) Absolute Neuts (auto) Absolute Nucleated RBC Nucleated RBC % (auto) ESR PT 12.8 INR 1.1 APTT 31.2 aPTT Heparin Protocol D-Dimer High Sensitivty 154 Sodium Potassium Chloride Carbon Dioxide Anion Gap BUN Creatinine Estim Creat Clear Calc Estimated GFR Random Glucose Calcium Magnesium Total Bilirubin AST ALT Alkaline Phosphatase Troponin I High Sens C-Reactive Protein B-Natriuretic Peptide Total Protein Albumin Lipase Beta HCG, Quant Urine Color Urine Appearance Urine pH Ur Specific [place] Urine Protein Urine Glucose (UA) Urine Ketones Urine Blood Urine Nitrite Ur Leukocyte Esterase Urine Test NEGATIVE Urine Opiates Screen POSITIVE H Urine Fentanyl Screen Not Detected Ur Barbiturates Screen Not Detected Ur Phencyclidine Scrn Not Detected Ur Amphetamines Screen Not Detected U Benzodiazepines Scrn Not Detected Urine Cocaine Screen Not Detected U Marijuana (THC) Screen Not Detected COVID-19 (PAPA) COVID-19 Clin Com Influenza Type A (PCR) Influenza Type B (PCR) RSV RNA Qual (PCR) SARS-CoV-2 RNA (RT-PCR) 07/13/21 07/13/21 07/13/21 00:47 03:40 06:01 WBC RBC Hgb Hct MCV MCH MCHC RDW Plt Count MPV Immature Gran % (Auto) Neut % (Auto) Lymph % (Auto) [place] % (Auto) Eos % (Auto) Baso % (Auto) Lymph # (Auto) [place] # (Auto) Eos # (Auto) Baso # (Auto) Abs Immat Gran (auto) Absolute Neuts (auto) Absolute Nucleated RBC Nucleated RBC % (auto) ESR PT INR APTT aPTT Heparin Protocol D-Dimer High Sensitivty Sodium Potassium Chloride Carbon Dioxide Anion Gap BUN Creatinine Estim Creat Clear Calc Estimated GFR Random Glucose Calcium Magnesium Total Bilirubin AST ALT Alkaline Phosphatase Troponin I High Sens 52370.1 H* 83727.7 H* C-Reactive Protein B-Natriuretic Peptide Total Protein Albumin Lipase Beta HCG, Quant Urine Color Urine Appearance Urine pH Ur Specific [place] Urine Protein Urine Glucose (UA) Urine Ketones Urine Blood Urine Nitrite Ur Leukocyte Esterase Urine Test Urine Opiates Screen Urine Fentanyl Screen Ur Barbiturates Screen Ur Phencyclidine Scrn Ur Amphetamines Screen U Benzodiazepines Scrn Urine Cocaine Screen U Marijuana (THC) Screen COVID-19 (PAPA) COVID-19 Clin Com Influenza Type A (PCR) NEGATIVE Influenza Type B (PCR) NEGATIVE RSV RNA Qual (PCR) NEGATIVE SARS-CoV-2 RNA (RT-PCR) POSITIVE A 07/13/21 07/13/21 07/13/21 07:26 07:26 12:14 WBC RBC Hgb Hct MCV MCH MCHC RDW Plt Count MPV Immature Gran % (Auto) Neut % (Auto) Lymph % (Auto) [place] % (Auto) Eos % (Auto) Baso % (Auto) Lymph # (Auto) [place] # (Auto) Eos # (Auto) Baso # (Auto) Abs Immat Gran (auto) Absolute Neuts (auto) Absolute Nucleated RBC Nucleated RBC % (auto) ESR PT INR APTT aPTT Heparin Protocol 44.5 L D-Dimer High Sensitivty Sodium Potassium Chloride Carbon Dioxide Anion Gap BUN Creatinine Estim Creat Clear Calc Estimated GFR Random Glucose Calcium Magnesium Total Bilirubin AST ALT Alkaline Phosphatase Troponin I High Sens 9660.9 H* C-Reactive Protein B-Natriuretic Peptide Total Protein Albumin Lipase Beta HCG, Quant < 2 Urine Color Urine Appearance Urine pH Ur Specific [place] Urine Protein Urine Glucose (UA) Urine Ketones Urine Blood Urine Nitrite Ur Leukocyte Esterase Urine Test Urine Opiates Screen Urine Fentanyl Screen Ur Barbiturates Screen Ur Phencyclidine Scrn Ur Amphetamines Screen U Benzodiazepines Scrn Urine Cocaine Screen U Marijuana (THC) Screen COVID-19 (PAPA) COVID-19 Clin Com Influenza Type A (PCR) Influenza Type B (PCR) RSV RNA Qual (PCR) SARS-CoV-2 RNA (RT-PCR) Imaging Radiologist's impression: Impressions Chest CTA 07/13/21 01:25 IMPRESSION: No pulmonary embolus identified. VTE: negative Assessment and Plan (1) Chest pain: Status: Acute Presented with chest discomfort, sharp, continual upper chest starting on 07/11 and continuing to present however to a lesser degree. EKG showing T-wave inversion V3 and V4[place] [address]. ESR 44, CRP 8.3. COVID PCR positive. Echocardiogram showing low normal EF and no regional wall motion abnormality. No cardiac history. Started on aspirin and on heparin drip for anticoagulation. Being treated for possible NSTEMI versus myocarditis. Will need diagnostic cardiac catheterization to rule out SCAD. Reviewed all findings with patient and she is agreeable with this plan. Discussed cardiac catheterization procedure, risks. No contrast dye allergy. Creatinine 0.78. Report called to [facility] and they will call when a bed is available. Plan for cardiac catheterization tomorrow morning with Dr. Maxwell. (2) Shortness of breath: Status: Acute (3) NSTEMI (non-ST elevated myocardial infarction): Status: Acute (4) Myocarditis: Status: Acute Procedures Date of Service Date of Service: 07/13/21
--- NOTE | 2021-07-13 16:02 | PC.NURSE ---
Inverted t-waives noted on monitor. EKG obtained. Cardiology already aware of t-waive inversions. Plan to transfer to [facility]. Awaiting further direction.
--- NOTE | 2021-07-13 17:49 | PM.DS ---
DS: Providers Provider Date of Service: 07/13/21 Date of admission: 07/13/21 05:03 Primary care physician: Unknown Physician Consults: 07/13/21 10:12 Consult to Cardiology Routine Consulting Provider: Gonzalez Maxwell Reason for consultation: chest pain Has provider been notified: Yes DS: Diagnosis Discharge Diagnosis (1) Chest pain: Status: Acute (2) Shortness of breath: Status: Acute (3) NSTEMI (non-ST elevated myocardial infarction): Status: Acute (4) Myocarditis: Status: Acute DS: Summary Hospital Course Hospital Course: 20-year-old female with no significant past medical history who presented to [facility] yesterday with report of chest discomfort.? Her EKG showed sinus rhythm with T-wave inversions in V3 and V4.? Blood pressure normal, oxygen saturation 100% on room air.? A CTA of the chest showed no PE.? Her troponin levels were elevated at 12,810 initially and manjeet to 13,706. She was started on a heparin drip for anticoagulation for treatment of possible NSTEMI.? She did have elevated ESR heart and CRP.? Her initial COVID test was negative then PCR test came back positive.? This morning her troponin level is 9660. Echocardiogram done today shows normal EF, no regional WMA.? Today she was seen at 1230. She describes having sharp burning pain in her upper chest which has been continual since Tuesday 07/11. She has not had pain like this previously. No associated symptoms.? No recent illness.? When her pain continued yesterday she came to the ER for evaluation.? She tells me that if she takes a deep breath in for when she climbs stairs her pain worsens.? She feels that laying down makes her pain feel better.? It has not gone away fully since it initially started 2 days ago.? She says it does worsen at times and then goes back to a more mild level.? Currently it is 10.? It has been is uncomfortable as 10/20.? In her normal state health she has no concerning symptoms.? She is a college student and normally tolerates activity without any symptoms or concerns. Presented with chest discomfort, sharp, continual upper chest starting on 07/11 and continuing to present however to a lesser degree.? EKG showing T-wave inversion V3 and V4.? [place] [address].? ESR 44, CRP 8.3.? COVID PCR positive.? Echocardiogram showing low normal EF and no regional wall motion abnormality.? No cardiac history.? Started on aspirin and on heparin drip for anticoagulation.? Being treated for possible NSTEMI versus myocarditis.? Will need diagnostic cardiac catheterization to rule out SCAD.? Reviewed all findings with patient and she is agreeable with this plan.? Discussed cardiac catheterization procedure, risks.? No contrast dye allergy.? Creatinine 0.78.? Report called to [facility] and they will call when a bed is available.? Plan for cardiac catheterization tomorrow morning with Dr. Maxwell. Time Spent with Patient Time attestation: Total time spent providing and/or coordinating discharge services: Discharge coordination time: Greater than 30 minutes Quality: Safe Use of Opioids Does Pt have an Active Cancer Diagnosis on the Problem List?: No Quality: Stroke Does the patient have a stroke diagnosis?: No Physical Exam Vital Signs: Vital Signs: Last Vital Signs Temp 97.6 F 07/13/21 16:13 Pulse 77 07/13/21 16:13 Resp 20 07/13/21 16:13 BP 109/64 07/13/21 16:13 Pulse Ox 99 07/13/21 16:13 BMI result Body Mass Index 19.2 Const: Other: Awake alert no acute distress Resp: Other: Clear to auscultation bilaterally no rales rhonchi wheezes Cardio: Other: No S4; positive S1-S2; no S3 murmurs rubs or gallops GI: Other: Soft nontender nondistended with normoactive bowel sounds Neuro: Other: Cranial nerves 2-12 grossly intact as tested. Motor is 5/5 all extremities. Sensation is intact. Cognition is appropriate Extrem: Other: No edema bilaterally DS: Data Data Completed and Pending Labs on day of discharge: Laboratory Results - last 24 hr 07/12/21 07/12/21 07/12/21 23:44 23:44 23:44 WBC 9.5 RBC 4.14 L Hgb 12.0 Hct 36.7 L MCV 88.6 MCH 29.0 MCHC 32.7 RDW 13.2 Plt Count 322 MPV 9.1 L Immature Gran % (Auto) 0.2 Neut % (Auto) 61.7 Lymph % (Auto) 28.1 [place] % (Auto) 6.9 Eos % (Auto) 2.8 Baso % (Auto) 0.3 Lymph # (Auto) 2.7 [place] # (Auto) 0.7 Eos # (Auto) 0.3 Baso # (Auto) 0.0 Abs Immat Gran (auto) 0.02 Absolute Neuts (auto) 5.9 Absolute Nucleated RBC 0.000 Nucleated RBC % (auto) 0.0 ESR PT INR APTT aPTT Heparin Protocol D-Dimer High Sensitivty Sodium 137 Potassium 4.5 Chloride 106 Carbon Dioxide 24 Anion Gap 12 BUN 9 Creatinine 0.78 Estim Creat Clear Calc 85.8 Estimated GFR > 60 Random Glucose 99 Calcium 9.4 Magnesium 2.2 Total Bilirubin 0.3 AST 67 H ALT 13 Alkaline Phosphatase 51 Troponin I High Sens C-Reactive Protein 8.31 H B-Natriuretic Peptide Total Protein 8.0 Albumin 4.0 Lipase 28 Beta HCG, Quant Urine Color Urine Appearance Urine pH Ur Specific [place] Urine Protein Urine Glucose (UA) Urine Ketones Urine Blood Urine Nitrite Ur Leukocyte Esterase Urine Test Urine Opiates Screen Urine Fentanyl Screen Ur Barbiturates Screen Ur Phencyclidine Scrn Ur Amphetamines Screen U Benzodiazepines Scrn Urine Cocaine Screen U Marijuana (THC) Screen COVID-19 (PAPA) Negative COVID-19 Clin Com See Note Influenza Type A (PCR) Influenza Type B (PCR) RSV RNA Qual (PCR) SARS-CoV-2 RNA (RT-PCR) 07/12/21 07/12/21 07/13/21 23:44 23:44 00:20 WBC RBC Hgb Hct MCV MCH MCHC RDW Plt Count MPV Immature Gran % (Auto) Neut % (Auto) Lymph % (Auto) [place] % (Auto) Eos % (Auto) Baso % (Auto) Lymph # (Auto) [place] # (Auto) Eos # (Auto) Baso # (Auto) Abs Immat Gran (auto) Absolute Neuts (auto) Absolute Nucleated RBC Nucleated RBC % (auto) ESR 44 H PT INR APTT aPTT Heparin Protocol D-Dimer High Sensitivty Sodium Potassium Chloride Carbon Dioxide Anion Gap BUN Creatinine Estim Creat Clear Calc Estimated GFR Random Glucose Calcium Magnesium Total Bilirubin AST ALT Alkaline Phosphatase Troponin I High Sens 21542.3 H* C-Reactive Protein B-Natriuretic Peptide 85 Total Protein Albumin Lipase Beta HCG, Quant Urine Color DK YELLOW Urine Appearance CLEAR Urine pH 6.5 Ur Specific [place] >= 1.030 H Urine Protein TRACE Urine Glucose (UA) NEG Urine Ketones NEG Urine Blood NEG Urine Nitrite NEG Ur Leukocyte Esterase NEG Urine Test Urine Opiates Screen Urine Fentanyl Screen Ur Barbiturates Screen Ur Phencyclidine Scrn Ur Amphetamines Screen U Benzodiazepines Scrn Urine Cocaine Screen U Marijuana (THC) Screen COVID-19 (PAPA) COVID-19 Clin Com Influenza Type A (PCR) Influenza Type B (PCR) RSV RNA Qual (PCR) SARS-CoV-2 RNA (RT-PCR) 07/13/21 07/13/21 07/13/21 00:20 00:20 00:47 WBC RBC Hgb Hct MCV MCH MCHC RDW Plt Count MPV Immature Gran % (Auto) Neut % (Auto) Lymph % (Auto) [place] % (Auto) Eos % (Auto) Baso % (Auto) Lymph # (Auto) [place] # (Auto) Eos # (Auto) Baso # (Auto) Abs Immat Gran (auto) Absolute Neuts (auto) Absolute Nucleated RBC Nucleated RBC % (auto) ESR PT 12.8 INR 1.1 APTT 31.2 aPTT Heparin Protocol D-Dimer High Sensitivty 154 Sodium Potassium Chloride Carbon Dioxide Anion Gap BUN Creatinine Estim Creat Clear Calc Estimated GFR Random Glucose Calcium Magnesium Total Bilirubin AST ALT Alkaline Phosphatase Troponin I High Sens C-Reactive Protein B-Natriuretic Peptide Total Protein Albumin Lipase Beta HCG, Quant Urine Color Urine Appearance Urine pH Ur Specific [place] Urine Protein Urine Glucose (UA) Urine Ketones Urine Blood Urine Nitrite Ur Leukocyte Esterase Urine Test NEGATIVE Urine Opiates Screen POSITIVE H Urine Fentanyl Screen Not Detected Ur Barbiturates Screen Not Detected Ur Phencyclidine Scrn Not Detected Ur Amphetamines Screen Not Detected U Benzodiazepines Scrn Not Detected Urine Cocaine Screen Not Detected U Marijuana (THC) Screen Not Detected COVID-19 (PAPA) COVID-19 Clin Com Influenza Type A (PCR) Influenza Type B (PCR) RSV RNA Qual (PCR) SARS-CoV-2 RNA (RT-PCR) 07/13/21 07/13/21 07/13/21 00:47 03:40 06:01 WBC RBC Hgb Hct MCV MCH MCHC RDW Plt Count MPV Immature Gran % (Auto) Neut % (Auto) Lymph % (Auto) [place] % (Auto) Eos % (Auto) Baso % (Auto) Lymph # (Auto) [place] # (Auto) Eos # (Auto) Baso # (Auto) Abs Immat Gran (auto) Absolute Neuts (auto) Absolute Nucleated RBC Nucleated RBC % (auto) ESR PT INR APTT aPTT Heparin Protocol D-Dimer High Sensitivty Sodium Potassium Chloride Carbon Dioxide Anion Gap BUN Creatinine Estim Creat Clear Calc Estimated GFR Random Glucose Calcium Magnesium Total Bilirubin AST ALT Alkaline Phosphatase Troponin I High Sens 01780.1 H* 92041.7 H* C-Reactive Protein B-Natriuretic Peptide Total Protein Albumin Lipase Beta HCG, Quant Urine Color Urine Appearance Urine pH Ur Specific [place] Urine Protein Urine Glucose (UA) Urine Ketones Urine Blood Urine Nitrite Ur Leukocyte Esterase Urine Test Urine Opiates Screen Urine Fentanyl Screen Ur Barbiturates Screen Ur Phencyclidine Scrn Ur Amphetamines Screen U Benzodiazepines Scrn Urine Cocaine Screen U Marijuana (THC) Screen COVID-19 (PAPA) COVID-19 Clin Com Influenza Type A (PCR) NEGATIVE Influenza Type B (PCR) NEGATIVE RSV RNA Qual (PCR) NEGATIVE SARS-CoV-2 RNA (RT-PCR) POSITIVE A 07/13/21 07/13/21 07/13/21 07:26 07:26 12:14 WBC RBC Hgb Hct MCV MCH MCHC RDW Plt Count MPV Immature Gran % (Auto) Neut % (Auto) Lymph % (Auto) [place] % (Auto) Eos % (Auto) Baso % (Auto) Lymph # (Auto) [place] # (Auto) Eos # (Auto) Baso # (Auto) Abs Immat Gran (auto) Absolute Neuts (auto) Absolute Nucleated RBC Nucleated RBC % (auto) ESR PT INR APTT aPTT Heparin Protocol 44.5 L D-Dimer High Sensitivty Sodium Potassium Chloride Carbon Dioxide Anion Gap BUN Creatinine Estim Creat Clear Calc Estimated GFR Random Glucose Calcium Magnesium Total Bilirubin AST ALT Alkaline Phosphatase Troponin I High Sens 9660.9 H* C-Reactive Protein B-Natriuretic Peptide Total Protein Albumin Lipase Beta HCG, Quant < 2 Urine Color Urine Appearance Urine pH Ur Specific [place] Urine Protein Urine Glucose (UA) Urine Ketones Urine Blood Urine Nitrite Ur Leukocyte Esterase Urine Test Urine Opiates Screen Urine Fentanyl Screen Ur Barbiturates Screen Ur Phencyclidine Scrn Ur Amphetamines Screen U Benzodiazepines Scrn Urine Cocaine Screen U Marijuana (THC) Screen COVID-19 (PAPA) COVID-19 Clin Com Influenza Type A (PCR) Influenza Type B (PCR) RSV RNA Qual (PCR) SARS-CoV-2 RNA (RT-PCR) Discharge Plan Discharge Patient Disposition: er Acute Care Hospital Discharge Diagnosis: NSTEMI Referrals: Physician,Unknown J [Primary Care Provider] - 1 Week Discharge Medications: New heparin(porcine) in 0.45% NaCl 25,000 unit/250 mL Parenteral Solution 25,000 unit continuous IV infusion DAILY Qty: 6000 0RF acetaminophen 325 mg Tablet 650 mg PO Q6H PRN (Reason: Pain, Mild (Pain Scale 1-3)) Qty: 60 0RF heparin (porcine) 5,000 unit/mL Solution 3,800 unit IVPUSH PROTOCOL BOLUS PRN (Reason: 80 Unit/Kg - Heparin Protocol) Qty: 30 0RF heparin (porcine) 5,000 unit/mL Solution 1,900 unit IVPUSH PROTOCOL BOLUS PRN (Reason: 40 Unit/Kg - Heparin Protocol) Qty: 30 0RF aspirin 81 mg Tablet,Chewable 81 mg PO DAILY Qty: 30 0RF Continued Alyacen (28) 1-35 mg-mcg tablet 1 tab PO DAILY 0RF Diet: advance to usual diet Activity on Discharge: As tolerated Stand Alone Forms: Patient Portal Discharge page Care Plan Goals: To [facility] for cardiac catheterization Health Concerns: Continue heparin drip and aspirin as ordered Plan of Treatment: Further plans based on results of cardiac catheterization Assessment: As per discharge summary
--- NOTE | 2021-07-13 18:39 | PC.NURSE ---
pt accepted [facility] [id number] 15 nurse - nurse [phone]
--- NOTE | 2021-07-13 19:44 | PC.NURSE ---
Addendum entered by Virginia Alejandra RN 07/13/21 20:41: 19:44 Report given to JARRETT Wells on Cardiac unit at [facility]. Original Note: Patient A&OX4, VSS. No pain at this time. Report given to JARRETT Wells at [facility] ED. Heparin drip infusing at 6.67ml/hr to PIV. youth nutritional monitor in place, ANNMARIE noted. Awaiting transport via [facility]. EMTALA paperwork with patient.
--- NOTE | 2021-07-14 07:41 | MHC.CM.PN ---
Patient transferred to [facility] overnight.
[2021-07-15 09:06] LABS: Lyme Abs Screen <0.90 index
[2021-07-16 16:51] LABS: Parvovirus B19 IgG <0.9; Parvovirus B19 IgM <0.9
[2021-07-18 12:16] LABS: Anti Nuclear Antibody Screen POSITIVE (NEGATIVE)
== END 2021-07-13 19:45 | disposition short-term general hospital (02) | DRG 190 ==
LOC: HO.ED 07-13 02:43 → HO.EDOVER 07-13 05:21
PROVIDERS: Internal Medicine Cardiovascular Disease; Physician Assistant; Admitting Provider Hospitalist; Emergency Provider Emergency Medicine; PCP Pediatrics; Visit Provider Hospitalist
DX: I21.4 Non-ST elevation (NSTEMI) myocardial infarction (principal); U07.1 COVID-19; I51.4 Myocarditis, unspecified
CPT/HCPCS: 0241U; 36415; 71275; 80053; 80307; 81003; 81025; 83690; 83735; 83880; 84484; 84702; 85025; 85379; 85610; 85652; 85730; 86038; 86039; 86140; 86617; 86618; 86658; 86747; 87635; 93005; 93306; 96365; 96366; 96375; 99285; 99291; 99292; Q9967